=== PATIENT | male | born 1945 | race Caucasian/White ===

== ENCOUNTER 2017-09-03 02:39 | Emergency (ER) | payer MEDICARE, OTHER, MEDICAID ==
[~2017-09-03] VITALS: Ht 172.7 cm; Wt 72.0 kg
[2017-09-03 03:02] VITALS: BP 132/67
== END 2017-09-03 04:00 | disposition home or self-care (01) ==
LOC: ER 02:39
DX: T83.091A Other mechanical complication of indwelling urethral catheter, initial encounter (principal); N40.0 Benign prostatic hyperplasia without lower urinary tract symptoms
CPT/HCPCS: 99284